=== PATIENT | male | born 1950 | race Caucasian/White ===

== ENCOUNTER 2020-11-12 06:39 | Day surgery (SDC) | payer MEDICARE ==
[~2020-11-12] VITALS: Ht 167.6 cm; Wt 85.5 kg
[~2020-11-12 06:39] MED LIST: ASPI-845 PO; ATOR40TA PO; CARV-50 PO; CLOP75TA35 PO
[2020-11-12 07:05] VITALS: BP 183/96
[2020-11-12] MEDS ORDERED: AMLO10TA48 PO (07:16)
[2020-11-12] MEDS ORDERED: METF500T PO (07:16)
[2020-11-12] MEDS ORDERED: albumin 25% 100mL bottle x 1 IV PRN (07:20)
== END 2020-11-12 08:30 | disposition home or self-care (01) ==
LOC: SSTAY O 06:39
PROVIDERS: ATTEND Radiology Diagnostic Radiology
DX: R14.0 Abdominal distension (gaseous) (principal); E11.9 Type 2 diabetes mellitus without complications; E78.5 Hyperlipidemia, unspecified; Z95.1 Presence of aortocoronary bypass graft; Z88.1 Allergy status to other antibiotic agents; Z79.01 Long term (current) use of anticoagulants; Z79.82 Long term (current) use of aspirin; Z79.899 Other long term (current) drug therapy; Z85.6 Personal history of leukemia
CPT/HCPCS: 76705